=== PATIENT | male | born 1950 | race Caucasian/White ===

== ENCOUNTER 2022-07-30 16:12 | Outpatient (CLI) | payer MEDICARE, OTHER | END 2022-07-30 16:13 | disposition home or self-care (01) | LOC: SCSRAD 16:12 | PROVIDERS: ATTEND Family Medicine Sports Medicine | DX: R22.31 Localized swelling, mass and lump, right upper limb (principal); M25.511 Pain in right shoulder; M79.641 Pain in right hand; M79.642 Pain in left hand; Z12.5 Encounter for screening for malignant neoplasm of prostate; I10 Essential (primary) hypertension; R10.31 Right lower quadrant pain; R73.9 Hyperglycemia, unspecified; E78.5 Hyperlipidemia, unspecified; Z79.899 Other long term (current) drug therapy | CPT/HCPCS: 73030; 73130 ×2; 73140; 80053; 80061; 81001; 82306; 82550; 83036; 85025; 85652; G0103 ==

== ENCOUNTER 2024-09-08 12:11 | Outpatient (CLI) | payer MEDICARE, OTHER ==
[2024-09-08 13:06] LABS: Estimated GFR - POC 64.0
== END 2024-09-08 12:12 | disposition home or self-care (01) ==
LOC: CT 12:11
PROVIDERS: ATTEND Internal Medicine Cardiovascular Disease
DX: I72.8 Aneurysm of other specified arteries (principal); I71.21 Aneurysm of the ascending aorta, without rupture
CPT/HCPCS: 36415; 71275; 82565

== ENCOUNTER 2024-11-11 08:00 | Day surgery (SDC) | payer MEDICARE, OTHER ==
[2024-11-01 12:19] VITALS: BMI 33.7
[2024-11-11] MEDS ORDERED: cefTRIAXone (ROCEPHIN) 2 GM VIAL ONE (09:53)
[2024-11-11] MEDS ORDERED: fentaNYL PF 100 MCG/2 ML SYRINGE ONE (10:16)
[2024-11-11] MEDS ORDERED: PROPOFOL 20 ML ONE (10:16)
[2024-11-11] MEDS ORDERED: Ondansetron PF 4 MG/2 ML Vial ONE (10:17)
[2024-11-11] MEDS ORDERED: Lidocaine 1% PF 5 ML VIAL ONE (10:17)
[2024-11-11] MEDS ORDERED: cefTRIAXone (ROCEPHIN) 1 GM VIAL ONE (10:31)
[2024-11-11] MEDS ORDERED: PHENYLEPHRINE-NS 100 MCG/ML 10 ML SYRINGE ONE (11:00)
[2024-11-11] MEDS ORDERED: Oxybutynin 5 MG TAB ONE (12:35)
== END 2024-11-11 18:30 | disposition home or self-care (01) ==
LOC: SDC 08:00
PROVIDERS: ATTEND Urology
PROC: 0V508ZZ Destruction of Prostate, Via Natural or Artificial Opening Endoscopic (ICD-10-PCS; principal; 2024-11-11)
DX: N40.1 Benign prostatic hyperplasia with lower urinary tract symptoms (principal); N13.8 Other obstructive and reflux uropathy; I10 Essential (primary) hypertension; E78.5 Hyperlipidemia, unspecified; I25.10 Atherosclerotic heart disease of native coronary artery without angina pectoris; Z79.899 Other long term (current) drug therapy
CPT/HCPCS: 52601; A4333; J0696 ×2; J2405; J2704; J3010; 88305